=== PATIENT | male | born 1985 | race Caucasian/White ===

== ENCOUNTER 2021-05-24 16:46 | Emergency (ER) | payer SELFPAY ==
[~2021-05-24] VITALS: Ht 182.9 cm; Wt 68.0 kg
--- OUTSIDE RECORDS SUMMARY | 2021-05-24 23:10 | XMS ---
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 Ezra has no Care Guidelines for this patient. [place] VISIT COUNT (12 MO.) 1 [facility] TOTAL 1 NOTE: Visits indicate total known visits. ED/UCC VISIT TRACKING (12 MO.) 05/24/2021 16:47 [facility] [place] TYPE: Emergency COMPLAINT: - DRUG USE INPATIENT VISIT TRACKING (12 MO.) No inpatient visits to display in this time frame [email or web address]
--- NOTE | 2021-05-25 15:19 | EKG ---
[facility] [address] [facility] [place] [address] Signed Sinus rhythm with 1st degree AV block Otherwise normal ECG Confirmed by ULISES TORIBIO MD ([id number]) on 05/25/2021 3:19:24 PM Electronically Signed By: ULISES TORIBIO MD 05/25/21 1519 PATIENT NAME: CHRIS LOPEZ Electrocardiogram DATE OF : 87 PHYSICIAN: ULISES TORIBIO MD REPORT #: [id number] REPORT IS CONFIDENTIAL AND NOT TO BE RELEASED WITHOUT AUTHORIZATION
== END 2021-05-24 22:12 | disposition home or self-care (01) ==
LOC: ED 16:46
DX: T40.412A Poisoning by fentanyl or fentanyl analogs, intentional self-harm, initial encounter (principal); T42.4X2A Poisoning by benzodiazepines, intentional self-harm, initial encounter
CPT/HCPCS: 36415; 80053; 81001; 84443; 85025; 93005; 93010; 99285-25; G0480